=== PATIENT | male | born 1980 | race Two or more races ===

== ENCOUNTER 2017-11-27 22:58 | Emergency (ER) ==
[2017-11-27 23:11] VITALS: BP 137/80
--- NOTE | 2017-11-28 08:24 | EKG REPORT ---
SEVERITY:- BORDERLINE ECG - SINUS RHYTHM BORDERLINE INFERIOR Q WAVES : Confirmed by: Ruperto Gorman 28-Nov-2017 08:24:03
== END 2017-11-27 23:15 | disposition left against medical advice (07) ==
LOC: ER 22:58
DX: Z53.21 Procedure and treatment not carried out due to patient leaving prior to being seen by health care provider (principal)
CPT/HCPCS: 93005; 93010

== ENCOUNTER 2017-11-28 19:46 | Emergency (ER) | payer SELFPAY ==
[2017-11-28 20:42] LABS: ABSOLUTE BASOPHILS # (AUTO) 0.1 10^3/uL (0.0-0.2); ABSOLUTE EOSINOPHILS # (AUTO) 0.2 10^3/uL (0.0-0.6); ABSOLUTE LYMPHOCYTES (AUTO) 3.3 10^3/uL (0.5-4.7); ABSOLUTE MONOCYTES (AUTO) 0.8 10^3/uL (0.1-1.4); ABSOLUTE NEUT (AUTO) 7.9 10^3/uL (1.7-8.2); BASOPHILS % (AUTO) 0.9 % (0-2); EOSINOPHILS % (AUTO) 1.9 % (0-6); HEMOGLOBIN 16.6 g/dL (13.5-17.0); LYMPHOCYTES % (AUTO) 26.9 % (13-45); MEAN CORPUSCULAR HEMOGLOBIN 29.1 pg (27.0-33.4); MEAN CORPUSCULAR HGB CONC 34.5 g/dL (32.0-36.0); MEAN CORPUSCULAR VOLUME 84 fl (80-97); MONOCYTES % (AUTO) 6.5 % (3-13); PLATELET COUNT 245 10^3/uL (150-450); RED BLOOD COUNT 5.69 10^6/uL (4.35-5.55); RED CELL DISTRIBUTION WIDTH 14.7 % (11.5-14.0); SEGMENTED NEUTROPHILS % (AUTO) 63.8 % (42-78); TOTAL CELLS COUNTED % (AUTO) 100 %; WHITE BLOOD COUNT 12.4 10^3/uL (4.0-10.5)
[2017-11-28] MEDS ORDERED: SUCRALFATE 1 GM TABLET PO ONE (20:54)
[2017-11-28] MEDS ORDERED: MAG HYDROX/AL HYDROX/SIMETH SUSP 30 ML UDCUP PO ONE (20:54)
[2017-11-28] MEDS ORDERED: FAMOTIDINE 20 MG TABLET PO ONE (20:55)
[2017-11-28 20:59] LABS: AMORPHOUS SEDIMENT,URINE TRACE /HPF; APPEARANCE,URINE SLIGHTLY-CLOUDY; BILIRUBIN,URINE NEGATIVE (NEGATIVE); COLOR,URINE YELLOW; GLUCOSE, URINE NEGATIVE (NEGATIVE); KETONES,URINE NEGATIVE (NEGATIVE); LEUKOCYTE ESTERASE,URINE NEGATIVE (NEGATIVE); NITRITE,URINE NEGATIVE (NEGATIVE); PROTEIN,URINE 100 mg/dL (NEGATIVE); URINE SPECIFIC GRAVITY 1.018
--- NOTE | 2017-11-28 21:01 | EKG REPORT ---
SEVERITY:- NORMAL ECG - SINUS RHYTHM : Confirmed by: Ruperto Gorman 28-Nov-2017 21:01:00
[2017-11-28 21:08] LABS: ALANINE AMINOTRANSFERASE 29 U/L (21-72); ALBUMIN 4.2 g/dL (3.5-5.0); ALKALINE PHOSPHATASE 109 U/L (38-126); ANION GAP 11 (5-19); ASPARTATE AMINO TRANSFERASE 26 U/L (17-59); BILIRUBIN,DIRECT 0.2 mg/dL (0.0-0.4); BILIRUBIN,TOTAL 0.5 mg/dL (0.2-1.3); BLOOD UREA NITROGEN 13 mg/dL (7-20); CALCIUM 9.9 mg/dL (8.4-10.2); CARBON DIOXIDE 30 mmol/L (22-30); CHLORIDE 101 mmol/L (98-107); GLUCOSE 117 mg/dL (75-110); LIPASE 113.1 U/L (23-300); POTASSIUM 4.1 mmol/L (3.6-5.0); SODIUM 141.8 mmol/L (137-145); TOTAL PROTEIN 7.3 g/dL (6.3-8.2)
--- NOTE | 2017-11-28 21:53 | ER Document Report ---
ED General - General Chief Complaint: Abdominal Pain Stated Complaint: ABDOMINAL PAIN Time Seen by Provider: 11/28/17 20:18 Mode of Arrival: Ambulatory Information source: Patient TRAVEL OUTSIDE OF THE [place] IN LAST 30 DAYS: No - HPI Notes: Patient is a pleasant 37-year-old male presents to the emergency department with report of a history of reflux and gastritis, previously was on scopolamine and pantoprazole back in [place], but he has run out of his supply of those medications here. The patient reports that for the last 2 days he has had midepigastric pain with belching and nausea with vomiting without hematemesis. The patient reports the pain is mainly midepigastric but did radiate to the lower chest wall yesterday. The patient denies any fever or chills or constipation or diarrhea or melena or dysuria. No cough or congestion. The patient took ibuprofen 2 days ago prior to the abdominal pain worsening. He also became stressed from an argument which seemed to make the abdominal pain worse. Mother with a heart attack at age 56, father of a stroke. - Related Data Allergies/Adverse Reactions: No Known Allergies Allergy (Verified 11/27/17 23:02) Past Medical History - General Information source: Patient - Social History Smoking Status: Current Every Day Smoker Frequency of alcohol use: None Drug Abuse: None Lives with: Friend Family History: CAD Review of Systems - Review of Systems -: Yes All other systems reviewed and negative Physical Exam - Vital signs Vitals: Temp Pulse Resp BP Pulse Ox 98.4 F 94 18 125/78 96 11/28/17 19:46 11/28/17 19:46 11/28/17 19:46 11/28/17 19:46 11/28/17 19:46 - Notes Notes: PHYSICAL EXAMINATION: GENERAL: Well-appearing, well-nourished and in no acute distress. HEAD: Atraumatic, normocephalic. EYES: Pupils equal round and reactive to light, extraocular movements intact, sclera anicteric, conjunctiva are normal. ENT: Nares patent, oropharynx clear without exudates. Moist mucous membranes. NECK: Normal range of motion, supple without lymphadenopathy LUNGS: Breath sounds clear to auscultation bilaterally and equal. No wheezes rales or rhonchi. HEART: Regular rate and rhythm without murmurs ABDOMEN: Soft, nondistended abdomen. No guarding, no rebound. No masses appreciated. Reproducible pain through the midepigastric region. Negative Evans's. No obvious hepatosplenomegaly. Musculoskeletal: Normal range of motion, no pitting or edema. No cyanosis. NEUROLOGICAL: Cranial nerves grossly intact. Normal speech, normal gait. Normal sensory, motor exams PSYCH: Normal mood, normal affect. SKIN: Warm, Dry, normal turgor, no rashes or lesions noted. Course - Re-evaluation Re-evalutation: 11/28/17 22:20 Patient was given Pepcid, Maalox, and Carafate with complete relief of his discomfort. He denied any further nausea. He tolerated p.o. fluids and felt stable for discharge. No evidence for pancreatitis or hepatitis or acute NV or ischemia or electrolyte imbalance or GI bleed or diabetes. Given the resolution of pain, there is no suspicion for small bowel obstruction or bowel perforation. - Vital Signs Vital signs: Temp Pulse Resp BP Pulse Ox 98.4 F 78 16 118/67 95 11/28/17 21:53 11/28/17 21:53 11/28/17 21:53 11/28/17 21:53 11/28/17 21:53 - Laboratory Result Diagrams: 11/28/17 20:20 11/28/17 20:20 Laboratory results interpreted by me: 11/28/17 11/28/17 11/28/17 20:20 20:20 20:20 WBC 12.4 H RBC 5.69 H RDW 14.7 H Glucose 117 H Urine Protein 100 H Urine Blood SMALL H Urine Urobilinogen 2.0 H - EKG Interpretation by Sd EKG shows normal: Sinus rhythm Additional EKG results interpreted by me: 11/28/17 22:21 EKG as interpreted by pa showed normal sinus rhythm rate of 82. No gross evidence for acute NV or ischemia. No change from previous EKG reviewed. Normal axes. Discharge - Discharge Clinical Impression: Gastritis Qualifiers: Gastritis type: unspecified gastritis Chronicity: acute Gastritis bleeding: without bleeding Qualified Code(s): K29.00 - Acute gastritis without bleeding Condition: Stable Disposition: HOME, SELF-CARE Instructions: Abdominal Pain ([facility]), Gastritis ([facility]) Additional Instructions: No ibuprofen or anti-inflammatories. Prescriptions: Metoclopramide HCl [Reglan 10 mg Tablet] 10 mg PO Q8HP PRN #15 tablet PRN Reason: Dicyclomine HCl [Bentyl 10 mg Capsule] 1 cap PO TIDP PRN #20 cap PRN Reason: Pantoprazole Sodium 20 mg PO DAILY #30 tablet.dr Forms: Return to Work Print Language: Bulgarian
[2017-11-28 21:54] VITALS: BP 118/67
== END 2017-11-28 22:06 | disposition home or self-care (01) ==
LOC: ER 19:46
DX: K29.00 Acute gastritis without bleeding (principal); K21.9 Gastro-esophageal reflux disease without esophagitis; T47.1X6A Underdosing of other antacids and anti-gastric-secretion drugs, initial encounter; Z91.128 Patient's intentional underdosing of medication regimen for other reason; Z91.14 Patient's other noncompliance with medication regimen; F17.200 Nicotine dependence, unspecified, uncomplicated; R07.89 Other chest pain
CPT/HCPCS: 36415; 80053; 81001; 83690; 84484; 85025; 93005; 93010; 99284